=== PATIENT | female | born 1965 | race African-American/Black ===

== ENCOUNTER 2016-11-19 14:00 | Emergency (ER) | payer OTHER, MEDICAID ==
[~2016-11-19] VITALS: Ht 167.6 cm; Wt 67.0 kg
[~2016-11-19 14:00] MED LIST: LAMO25TA4; LEVE1000 PO; MECL12.584 PO; TOPI200C; bactrim
[2016-11-19 15:24] VITALS: BP 128/81
== END 2016-11-19 16:53 | disposition left against medical advice (07) ==
LOC: ER 14:00
DX: Z53.21 Procedure and treatment not carried out due to patient leaving prior to being seen by health care provider (principal)

== ENCOUNTER 2016-12-18 12:01 | Emergency (ER) | payer OTHER, MEDICAID | END 2016-12-18 15:00 | disposition left against medical advice (07) | LOC: ER 14:34 | DX: Z53.21 Procedure and treatment not carried out due to patient leaving prior to being seen by health care provider (principal) ==

== ENCOUNTER 2017-02-08 16:49 | Emergency (ER) | payer OTHER, MEDICAID ==
[~2017-02-08] VITALS: Ht 165.1 cm; Wt 60.0 kg
[2017-02-08 16:50] VITALS: BP 148/96
[2017-02-08] MEDS ORDERED: TETANUS, DIPHTHERIA, PERTUSSIS VAC/PF 0.5ML (>7YR OLD) IM ONE (17:45)
[2017-02-08] MEDS ORDERED: LIDOCAINE HCL 1% 20ML VIAL (Pyxis) INJ MC ONE (17:45)
== END 2017-02-08 19:05 | disposition home or self-care (01) ==
LOC: ER 17:43
DX: S01.01XA Laceration without foreign body of scalp, initial encounter (principal); Z88.0 Allergy status to penicillin; Z88.2 Allergy status to sulfonamides; Y08.89XA Assault by other specified means, initial encounter; Y93.01 Activity, walking, marching and hiking; Y92.89 Other specified places as the place of occurrence of the external cause; Y99.8 Other external cause status
CPT/HCPCS: 12002; 90471; 90715; 99283; J3490

== ENCOUNTER 2017-04-13 15:34 | Emergency (ER) | payer MEDICARE, MEDICAID ==
[~2017-04-13] VITALS: Ht 167.6 cm; Wt 65.0 kg
[2017-04-13 19:28] LABS: CLARITY URINE CLOUDY (CLEAR); COLOR URINE YELLOW (YELLOW); GLUCOSE URINE NEGATIVE (NEGATIVE); KETONES URINE NEGATIVE (NEGATIVE); LEUKOCYTE ESTERASE URINE 1+ (NEGATIVE); NITRITE URINE POSITIVE (NEGATIVE); OCCULT BLOOD URINE NEGATIVE (NEGATIVE); PROTEIN URINE NEGATIVE (NEGATIVE); SPECIFIC GRAVITY URINE 1.013 (1.005-1.030); UROBILINOGEN URINE 0.2 E.U./dL (0.2-1.0)
[2017-04-13 20:40] VITALS: BP 119/76
[2017-04-13 21:18] LABS: EOSINOPHILS % 2.3 % (0.0-5.0); HEMATOCRIT. 35.9 % (36.0-48.0); HEMOGLOBIN. 11.3 g/dL (12.0-16.0); MEAN CORPUSCULAR HEMOGLOBIN 23.5 pg (28.0-32.0); MEAN CORPUSCULAR VOLUME 74.5 fL (81.0-99.0); MONOCYTES % 5.4 % (2.0-8.0); NEUTROPHILS % 47.3 % (40.0-76.0); PLATELET 190 x1000/uL (130-400); RED BLOOD CELL COUNT 4.81 mill/uL (4.2-5.4); RED CELL DISTRIBUTION WIDTH 15.2 % (11.6-14.6)
[2017-04-13 21:30] LABS: CARBON DIOXIDE 21 mEq/L (21-32); CHLORIDE 114 mEq/L (98-107)
== END 2017-04-13 21:19 | disposition left against medical advice (07) ==
LOC: ER 17:42
DX: N39.0 Urinary tract infection, site not specified (principal); G40.909 Epilepsy, unspecified, not intractable, without status epilepticus; Z88.0 Allergy status to penicillin
CPT/HCPCS: 36415; 80053; 81001; 81025; 83690; 85025; 99284

== ENCOUNTER 2018-04-07 16:08 | Emergency (ER) | payer MEDICARE, MEDICAID ==
[~2018-04-07] VITALS: Ht 170.2 cm; Wt 61.0 kg
[~2018-04-07 16:08] MED LIST changes: -TOPI200C; +TOPI200C6
[2018-04-07 16:23] VITALS: BP 110/68
== END 2018-04-07 19:30 | disposition home or self-care (01) ==
LOC: ER 16:08
DX: H93.13 Tinnitus, bilateral (principal); R51 Headache; M19.90 Unspecified osteoarthritis, unspecified site; Z88.0 Allergy status to penicillin; Z88.2 Allergy status to sulfonamides
CPT/HCPCS: 99281

== ENCOUNTER 2018-06-22 13:16 | Emergency (ER) | payer OTHER, MEDICAID ==
[~2018-06-22] VITALS: Ht 167.6 cm; Wt 62.0 kg
[2018-06-22] MEDS ORDERED: SODIUM CHLORIDE 0.9% 1,000 ML IV ONE (14:07)
[2018-06-22] MEDS ORDERED: MORPHINE SULFATE 4 MG/ML CPJ (NOT FOR IM USE) IV STA (14:07)
[2018-06-22] MEDS ORDERED: ONDANSETRON HCL 4MG/2ML INJ IV STA (14:07)
[2018-06-22 14:46] LABS: BASOPHILS % 0.9 % (0.0-2.0); EOSINOPHILS % 8.3 % (0.0-5.0); HEMATOCRIT. 30.9 % (36.0-48.0); HEMOGLOBIN. 9.8 g/dL (12.0-16.0); LYMPHOCYTES % 35.3 % (20.0-50.0); MEAN CORPUSCULAR HEMOGLOBIN 23.3 pg (28.0-32.0); MEAN CORPUSCULAR VOLUME 73.9 fL (81.0-99.0); MEAN PLATELET VOLUME 8.1 fl (7.4-10.4); MONOCYTES % 5.7 % (2.0-8.0); NEUTROPHILS % 49.8 % (40.0-76.0); PLATELET 273 x1000/uL (130-400); RED BLOOD CELL COUNT 4.18 mill/uL (4.2-5.4); RED CELL DISTRIBUTION WIDTH 16.1 % (11.6-14.6)
[2018-06-22 14:55] LABS: PARTIAL THROMBOPLASTIN TIME 27.8 sec (23.4-31.0)
[2018-06-22 14:58] LABS: CHLORIDE 115 mEq/L (98-107)
[2018-06-22] MEDS ORDERED: ASPIRIN 81MG TABLET PO ONE (16:30)
[2018-06-22] MEDS ORDERED: NITROGLYCERIN 0.4MG TABLET SL SL PRN (16:30)
[2018-06-22 17:13] VITALS: BP 132/78
== END 2018-06-22 17:17 | disposition left against medical advice (07) ==
LOC: ER 15:38
DX: R07.89 Other chest pain (principal); G40.909 Epilepsy, unspecified, not intractable, without status epilepticus
CPT/HCPCS: 36415; 71045; 71250; 80053; 83880; 84484; 85025; 85379; 85610; 85730; 93005; 96374; 96375; 99285; J2270; J2405; J7030

== ENCOUNTER 2018-06-29 19:51 | Emergency (ER) | payer MEDICAID, OTHER ==
[~2018-06-29] VITALS: Ht 170.2 cm; Wt 64.0 kg
[2018-06-29] MEDS ORDERED: SODIUM CHLORIDE 0.9% 1,000 ML IV ONE (21:43)
[2018-06-29] MEDS ORDERED: MAGNESIUM/ALUMINUM HYDROXIDE/SIMETHICONE 30ML UDC PO STA (21:43)
[2018-06-29] MEDS ORDERED: ONDANSETRON HCL 4MG/2ML INJ IV STA (21:43)
[2018-06-29] MEDS ORDERED: KETOROLAC 30MG/ML VIAL IV STA (21:43)
[2018-06-29 22:41] LABS: BASOPHILS % 0.6 % (0.0-2.0); EOSINOPHILS % 4.3 % (0.0-5.0); HEMATOCRIT. 31.8 % (36.0-48.0); LYMPHOCYTES % 33.5 % (20.0-50.0); MEAN CORPUSCULAR HEMOGLOBIN 23.6 pg (28.0-32.0); MEAN CORPUSCULAR VOLUME 74.6 fL (81.0-99.0); MEAN PLATELET VOLUME 8.6 fl (7.4-10.4); MONOCYTES % 6.3 % (2.0-8.0); NEUTROPHILS % 55.3 % (40.0-76.0); PLATELET 350 x1000/uL (130-400); RED BLOOD CELL COUNT 4.26 mill/uL (4.2-5.4); RED CELL DISTRIBUTION WIDTH 16.8 % (11.6-14.6)
[2018-06-29 22:46] LABS: CHLORIDE 113 mEq/L (98-107)
[2018-06-29 22:55] LABS: CLARITY URINE CLEAR (CLEAR); COLOR URINE YELLOW (YELLOW); KETONES URINE NEGATIVE (NEGATIVE); LEUKOCYTE ESTERASE URINE 1+ (NEGATIVE); NITRITE URINE NEGATIVE (NEGATIVE); OCCULT BLOOD URINE NEGATIVE (NEGATIVE); PH URINE 7.5 (4.5-8.0); PROTEIN URINE NEGATIVE (NEGATIVE); SPECIFIC GRAVITY URINE 1.031 (1.005-1.030)
[2018-06-30 00:03] VITALS: BP 119/80
== END 2018-06-30 00:05 | disposition home or self-care (01) ==
LOC: ER 19:51
DX: N30.00 Acute cystitis without hematuria (principal); K21.9 Gastro-esophageal reflux disease without esophagitis; Z88.0 Allergy status to penicillin; Z88.2 Allergy status to sulfonamides
CPT/HCPCS: 36415; 80053; 81003; 83690; 85025; 96361; 96374; 96375; 99285; J1885; J2405; J7030

== ENCOUNTER 2018-07-09 16:36 | Emergency (ER) | payer OTHER ==
[~2018-07-09] VITALS: Ht 170.2 cm; Wt 64.1 kg
[2018-07-09] MEDS ORDERED: LIDOCAINE HCL/PF 1% 10 MG/ML 5ML VIAL IJ ONE (21:15)
[2018-07-09] MEDS ORDERED: BACITRACIN ZINC OINT UDPKT TOP ONE (22:00)
[2018-07-09 22:07] VITALS: BP 112/68
== END 2018-07-09 22:11 | disposition home or self-care (01) ==
LOC: ER 16:36
DX: L03.011 Cellulitis of right finger (principal); K21.9 Gastro-esophageal reflux disease without esophagitis; G40.89 Other seizures; Z88.0 Allergy status to penicillin; Z88.2 Allergy status to sulfonamides; Z79.899 Other long term (current) drug therapy
CPT/HCPCS: 10060; 99283; J3490

== ENCOUNTER 2018-07-28 14:22 | Emergency (ER) | payer OTHER ==
[~2018-07-28] VITALS: Ht 167.6 cm; Wt 66.5 kg
[2018-07-28 14:47] VITALS: BP 119/67
== END 2018-07-28 19:00 | disposition left against medical advice (07) ==
LOC: ER 14:22
DX: M79.662 Pain in left lower leg (principal); M79.661 Pain in right lower leg; Z53.21 Procedure and treatment not carried out due to patient leaving prior to being seen by health care provider

== ENCOUNTER 2019-02-11 12:53 | Emergency (ER) | payer OTHER, MEDICAID ==
[~2019-02-11] VITALS: Ht 170.2 cm; Wt 63.0 kg
[~2019-02-11 12:53] MED LIST changes: -LAMO25TA4; +LAMO25TA9; -bactrim
[2019-02-11 13:21] VITALS: BP 131/75
== END 2019-02-11 21:31 | disposition left against medical advice (07) ==
LOC: ER 13:32
DX: R56.9 Unspecified convulsions (principal); Z53.21 Procedure and treatment not carried out due to patient leaving prior to being seen by health care provider

== ENCOUNTER 2019-02-22 13:46 | Emergency (ER) | payer OTHER, MEDICAID ==
[~2019-02-22] VITALS: Ht 162.6 cm; Wt 62.0 kg
[2019-02-22 15:28] LABS: CLARITY URINE TURBID (CLEAR); COLOR URINE YELLOW (YELLOW); KETONES URINE NEGATIVE (NEGATIVE); LEUKOCYTE ESTERASE URINE NEGATIVE (NEGATIVE); NITRITE URINE NEGATIVE (NEGATIVE); OCCULT BLOOD URINE NEGATIVE (NEGATIVE); PH URINE 7.5 (4.5-8.0); PROTEIN URINE NEGATIVE (NEGATIVE); SPECIFIC GRAVITY URINE 1.015 (1.005-1.030)
[2019-02-22 15:40] LABS: BASOPHILS % 0.9 % (0.0-2.0); EOSINOPHILS % 2.1 % (0.0-5.0); HEMATOCRIT. 27.4 % (36.0-48.0); HEMOGLOBIN. 8.4 g/dL (12.0-16.0); LYMPHOCYTES % 27.1 % (20.0-50.0); MEAN CORPUSCULAR VOLUME 65.4 fL (81.0-99.0); MEAN PLATELET VOLUME 7.5 fl (7.4-10.4); MONOCYTES % 6.3 % (2.0-8.0); NEUTROPHILS % 63.6 % (40.0-76.0); PLATELET 434 x1000/uL (130-400); RED BLOOD CELL COUNT 4.19 mill/uL (4.2-5.4); RED CELL DISTRIBUTION WIDTH 20.7 % (11.6-14.6)
[2019-02-22 15:45] LABS: CHLORIDE 111 mEq/L (98-107)
[2019-02-22 15:47] LABS: PARTIAL THROMBOPLASTIN TIME 28.2 sec (23.4-31.0); PROTHROMBIN TIME 10.4 sec (9.6-11.0)
[2019-02-22 17:00] VITALS: BP 119/69
[2019-02-22 18:02] LABS: PLATELET ESTIMATE NORMAL
== END 2019-02-22 17:00 | disposition left against medical advice (07) ==
LOC: ER 13:53 → CANBEDREQ 20:28
DX: R55 Syncope and collapse (principal); R30.0 Dysuria; R60.0 Localized edema; M54.5 Low back pain; G40.909 Epilepsy, unspecified, not intractable, without status epilepticus
CPT/HCPCS: 36415; 71045; 83880; 84484; 93005; 93970; 99284

== ENCOUNTER 2019-02-27 10:03 | Emergency (ER) | payer OTHER, MEDICAID ==
[~2019-02-27] VITALS: Ht 170.2 cm; Wt 60.0 kg
[2019-02-27 11:42] LABS: HEMATOCRIT. 24.6 % (36.0-48.0); HEMOGLOBIN. 7.5 g/dL (12.0-16.0); LYMPHOCYTES % 19.6 % (20.0-50.0); MEAN CORPUSCULAR HEMOGLOBIN 19.8 pg (28.0-32.0); MEAN PLATELET VOLUME 7.4 fl (7.4-10.4); MONOCYTES % 8.9 % (2.0-8.0); NEUTROPHILS % 68.5 % (40.0-76.0); PLATELET 464 x1000/uL (130-400); RED BLOOD CELL COUNT 3.78 mill/uL (4.2-5.4); RED CELL DISTRIBUTION WIDTH 20.6 % (11.6-14.6)
[2019-02-27 11:48] LABS: CHLORIDE 117 mEq/L (98-107)
[2019-02-27 11:50] LABS: INR 1.1; PARTIAL THROMBOPLASTIN TIME 27.3 sec (23.4-31.0); PROTHROMBIN TIME 10.8 sec (9.6-11.0)
[2019-02-27 12:08] LABS: PLATELET ESTIMATE INCREASED
[2019-02-27 14:30] VITALS: BP 118/68
== END 2019-02-27 15:10 | disposition home or self-care (01) ==
LOC: ER 10:03 → CANBEDREQ 14:24 → ER 15:10
DX: D64.9 Anemia, unspecified (principal); R55 Syncope and collapse; Z88.2 Allergy status to sulfonamides; Z88.0 Allergy status to penicillin
CPT/HCPCS: 36415; 71045; 83880; 84484; 86850; 86900; 93005; 99284

== ENCOUNTER 2019-04-16 17:28 | Emergency (ER) | payer OTHER, MEDICAID ==
[~2019-04-16] VITALS: Ht 170.2 cm; Wt 61.0 kg
[2019-04-16 17:39] VITALS: BP 127/77
== END 2019-04-16 19:58 | disposition left against medical advice (07) ==
LOC: ER 18:06
DX: R07.9 Chest pain, unspecified (principal); Z53.21 Procedure and treatment not carried out due to patient leaving prior to being seen by health care provider
CPT/HCPCS: 93005

== ENCOUNTER 2019-05-16 13:05 | Emergency (ER) | payer OTHER, MEDICAID ==
[~2019-05-16] VITALS: Ht 162.6 cm; Wt 49.0 kg
[2019-05-16] MEDS ORDERED: GABA-533 PO (13:11)
[2019-05-16] MEDS ORDERED: DIVA-75 PO (13:11)
[2019-05-16] MEDS ORDERED: KETOROLAC 30MG/ML VIAL IV STA (13:21)
[2019-05-16] MEDS ORDERED: LORAZEPAM 2MG/ML CPJ IV ONE (13:30)
[2019-05-16] MEDS ORDERED: LEVETIRACETAM 500MG PREMIX 100 ML IV ONE (13:30)
[2019-05-16 14:32] LABS: BASOPHILS % 0.5 % (0.0-2.0); EOSINOPHILS % 0.1 % (0.0-5.0); HEMATOCRIT. 31.2 % (36.0-48.0); HEMOGLOBIN. 9.6 g/dL (12.0-16.0); LYMPHOCYTES % 29.2 % (20.0-50.0); MEAN CORPUSCULAR HEMOGLOBIN 20.9 pg (28.0-32.0); MEAN CORPUSCULAR VOLUME 68.1 fL (81.0-99.0); MEAN PLATELET VOLUME 8.5 fl (7.4-10.4); MONOCYTES % 4.3 % (2.0-8.0); NEUTROPHILS % 65.9 % (40.0-76.0); PLATELET 317 x1000/uL (130-400); RED BLOOD CELL COUNT 4.58 mill/uL (4.2-5.4); RED CELL DISTRIBUTION WIDTH 25.1 % (11.6-14.6)
[2019-05-16 14:38] LABS: CHLORIDE 114 mEq/L (98-107)
[2019-05-16 14:43] LABS: ETHANOL BLOOD < 10 mg/dL
[2019-05-16 16:03] LABS: PLATELET ESTIMATE NORMAL
[2019-05-16 16:57] VITALS: BP 108/90
== END 2019-05-16 16:58 | disposition home or self-care (01) ==
LOC: ER 13:05
DX: R56.9 Unspecified convulsions (principal); R51 Headache; D64.9 Anemia, unspecified; Z79.899 Other long term (current) drug therapy; Z88.0 Allergy status to penicillin; Z88.2 Allergy status to sulfonamides
CPT/HCPCS: 36415; 70450; 80053; 80165; 80320; 85025; 93005; 96365; 96375; 99284; J1885; J1953; J2060; G0480

== ENCOUNTER 2019-07-31 14:00 | Emergency (ER) | payer OTHER, MEDICAID ==
[~2019-07-31] VITALS: Ht 170.2 cm; Wt 59.0 kg
[~2019-07-31 14:00] MED LIST changes: +DIVA-75 PO; +GABA-533 PO
[2019-07-31 16:18] LABS: CLARITY URINE TURBID (CLEAR); COLOR URINE YELLOW (YELLOW); KETONES URINE NEGATIVE (NEGATIVE); LEUKOCYTE ESTERASE URINE 3+ (NEGATIVE); NITRITE URINE POSITIVE (NEGATIVE); OCCULT BLOOD URINE 3+ (NEGATIVE); PH URINE 6.5 (4.5-8.0); PROTEIN URINE 1+ (NEGATIVE); UROBILINOGEN URINE 0.2 E.U./dL (0.2-1.0)
[2019-07-31 22:25] VITALS: BP 119/53
== END 2019-07-31 22:28 | disposition home or self-care (01) ==
LOC: ER 14:00
DX: N39.0 Urinary tract infection, site not specified (principal)
CPT/HCPCS: 81003; 81025; 87077; 87186; 99283

== ENCOUNTER 2019-09-04 14:47 | Emergency (ER) | payer BC, MEDICAID ==
[~2019-09-04] VITALS: Ht 170.2 cm; Wt 62.0 kg
[~2019-09-04 14:47] MED LIST changes: +MECL-183 PO; -MECL12.584 PO
[2019-09-04 15:38] VITALS: BP 121/71
== END 2019-09-04 21:15 | disposition left against medical advice (07) ==
LOC: ER 14:47
DX: Z53.21 Procedure and treatment not carried out due to patient leaving prior to being seen by health care provider (principal)

== ENCOUNTER 2019-10-30 11:19 | Emergency (ER) | payer OTHER, MEDICAID ==
[~2019-10-30] VITALS: Ht 170.2 cm; Wt 61.0 kg
[2019-10-30] MEDS ORDERED: SODIUM CHLORIDE 0.9% 1,000 ML IV ONE (11:35)
[2019-10-30 12:12] LABS: CLARITY URINE CLOUDY (CLEAR); COLOR URINE YELLOW (YELLOW); KETONES URINE NEGATIVE (NEGATIVE); LEUKOCYTE ESTERASE URINE TRACE (NEGATIVE); NITRITE URINE NEGATIVE (NEGATIVE); OCCULT BLOOD URINE NEGATIVE (NEGATIVE); PH URINE 6.5 (4.5-8.0); PROTEIN URINE NEGATIVE (NEGATIVE); SPECIFIC GRAVITY URINE 1.029 (1.005-1.030)
[2019-10-30 12:13] LABS: BASOPHILS % 1.1 % (0.0-2.0); EOSINOPHILS % 2.2 % (0.0-5.0); HEMATOCRIT. 31.8 % (36.0-48.0); HEMOGLOBIN. 9.9 g/dL (12.0-16.0); MEAN CORPUSCULAR HEMOGLOBIN 21.8 pg (28.0-32.0); MEAN CORPUSCULAR VOLUME 70.2 fL (81.0-99.0); MEAN PLATELET VOLUME 7.7 fl (7.4-10.4); MONOCYTES % 7.1 % (2.0-8.0); NEUTROPHILS % 47.6 % (40.0-76.0); PLATELET 380 x1000/uL (130-400); RED BLOOD CELL COUNT 4.54 mill/uL (4.2-5.4); RED CELL DISTRIBUTION WIDTH 19.1 % (11.6-14.6)
[2019-10-30 12:18] LABS: CHLORIDE 113 mEq/L (98-107)
[2019-10-30 12:21] LABS: ETHANOL BLOOD < 10 mg/dL
[2019-10-30 12:26] LABS: CREATINE KINASE 454 IU/L (26-192)
[2019-10-30 12:27] LABS: *BARBITURATES SCREEN URINE NEGATIVE (NEGATIVE); *BENZODIAZEPINES SCREEN URINE NEGATIVE (NEGATIVE); *COCAINE SCREEN URINE NEGATIVE (NEGATIVE)
[2019-10-30 12:28] LABS: *AMPHETAMINES SCREEN URINE NEGATIVE (NEGATIVE); CANNABINOID URINE SCREEN NEGATIVE (NEGATIVE); METHADONE URINE SCREEN NEGATIVE (NEGATIVE); OPIATES URINE SCREEN NEGATIVE (NEGATIVE); PHENCYCLIDINE URINE SCREEN NEGATIVE (NEGATIVE)
[2019-10-30 12:50] VITALS: BP 118/70
== END 2019-10-30 14:13 | disposition left against medical advice (07) ==
LOC: ER 11:19
DX: G40.909 Epilepsy, unspecified, not intractable, without status epilepticus (principal); E87.2 Acidosis
CPT/HCPCS: 36415; 70450; 71045; 80053; 80165; 80201; 80305; 80320; 81003; 82542; 82550; 85025; 99285; J7030; G0480

== ENCOUNTER 2020-08-07 11:41 | Emergency (ER) | payer OTHER, MEDICAID ==
[~2020-08-07] VITALS: Ht 165.1 cm; Wt 59.0 kg
[2020-08-07 11:45] VITALS: BP 158/91
[2020-08-07] MEDS ORDERED: LEVETIRACETAM 1000MG PREMIX 100 ML IV ONE (12:00)
[2020-08-07] MEDS ORDERED: SODIUM CHLORIDE 0.9% 1,000 ML IV ONE (12:00)
[2020-08-07 13:27] LABS: BASOPHILS % 1.4 % (0.0-2.0); EOSINOPHILS % 5.4 % (0.0-5.0); HEMATOCRIT. 36.2 % (36.0-48.0); HEMOGLOBIN. 11.4 g/dL (12.0-16.0); LYMPHOCYTES % 23.8 % (20.0-50.0); MEAN CORPUSCULAR HEMOGLOBIN 24.6 pg (28.0-32.0); MEAN CORPUSCULAR VOLUME 77.9 fL (81.0-99.0); MEAN PLATELET VOLUME 8.3 fl (7.4-10.4); MONOCYTES % 5.7 % (2.0-8.0); NEUTROPHILS % 63.7 % (40.0-76.0); PLATELET 332 x1000/uL (130-400); RED BLOOD CELL COUNT 4.65 mill/uL (4.2-5.4); RED CELL DISTRIBUTION WIDTH 15.8 % (11.6-14.6)
[2020-08-07 13:28] LABS: CLARITY URINE CLOUDY (CLEAR); COLOR URINE YELLOW (YELLOW); KETONES URINE NEGATIVE (NEGATIVE); LEUKOCYTE ESTERASE URINE NEGATIVE (NEGATIVE); NITRITE URINE NEGATIVE (NEGATIVE); OCCULT BLOOD URINE NEGATIVE (NEGATIVE); PROTEIN URINE NEGATIVE (NEGATIVE); SPECIFIC GRAVITY URINE 1.017 (1.005-1.030); UROBILINOGEN URINE 0.2 E.U./dL (0.2-1.0)
[2020-08-07 13:35] LABS: CHLORIDE 111 mEq/L (98-107)
[2020-08-07 13:39] LABS: ETHANOL BLOOD < 10 mg/dL
[2020-08-07 13:42] LABS: CARBAMAZEPINE 0.5 ug/mL (4-12)
[2020-08-07] MEDS ORDERED: DIVALPROEX SODIUM 500MG ER TABLET PO SCH (14:00)
[2020-08-07 14:06] LABS: *AMPHETAMINES SCREEN URINE NEGATIVE (NEGATIVE)
[2020-08-07 14:07] LABS: *BARBITURATES SCREEN URINE NEGATIVE (NEGATIVE); *BENZODIAZEPINES SCREEN URINE NEGATIVE (NEGATIVE); *COCAINE SCREEN URINE NEGATIVE (NEGATIVE); METHADONE URINE SCREEN NEGATIVE (NEGATIVE); OPIATES URINE SCREEN NEGATIVE (NEGATIVE)
[2020-08-07 14:08] LABS: CANNABINOID URINE SCREEN NEGATIVE (NEGATIVE); PHENCYCLIDINE URINE SCREEN NEGATIVE (NEGATIVE)
== END 2020-08-07 15:00 | disposition left against medical advice (07) ==
LOC: ER 11:54
DX: G40.909 Epilepsy, unspecified, not intractable, without status epilepticus (principal)
CPT/HCPCS: 36415; 80053; 80156; 80165; 80305; 80320; 81003; 82962; 85025; 93005; 99284; J7030; G0480

== ENCOUNTER 2022-09-20 14:27 | Emergency (ER) | payer MEDICARE, MEDICAID ==
[~2022-09-20] VITALS: Ht 165.1 cm; Wt 50.0 kg
[~2022-09-20 14:27] MED LIST changes: -MECL-183 PO; +MECL-217 PO
[2022-09-20 14:31] VITALS: BP 148/80
== END 2022-09-20 15:18 | disposition left against medical advice (07) ==
LOC: ER 14:46
DX: G40.909 Epilepsy, unspecified, not intractable, without status epilepticus (principal)
CPT/HCPCS: 99283

== ENCOUNTER 2023-04-16 16:12 | Emergency (ER) | payer OTHER, MEDICAID ==
[~2023-04-16] VITALS: Ht 167.6 cm; Wt 70.0 kg
[2023-04-16 16:38] VITALS: BP 130/74; RESP 16; TEMP 98.7; O2SAT 96
[2023-04-16 16:41] VITALS: PULSE 71
[2023-04-16 17:19] LABS: CLARITY URINE CLOUDY (CLEAR); COLOR URINE YELLOW (YELLOW); GLUCOSE URINE NEGATIVE (NEGATIVE); KETONES URINE NEGATIVE (NEGATIVE); LEUKOCYTE ESTERASE URINE 2+ (NEGATIVE); NITRITE URINE NEGATIVE (NEGATIVE); OCCULT BLOOD URINE 1+ (NEGATIVE); PROTEIN URINE TRACE (NEGATIVE); SPECIFIC GRAVITY URINE 1.032 (1.005-1.030)
[2023-04-16 17:55] LABS: BACTERIA URINE 2+
[2023-04-16 17:56] LABS: SQUAMOUS EPITHELIAL CELL URINE 1+ /lpf (RARE/1+); WBC URINE 15-25 /hpf (0-2)
[2023-04-16] MEDS ORDERED: NITR-87 MT (18:23)
[2023-04-16] MEDS ORDERED: CIPR-264 MT (18:27)
== END 2023-04-16 19:22 | disposition home or self-care (01) ==
LOC: ER 16:12
DX: N39.0 Urinary tract infection, site not specified (principal); Z88.0 Allergy status to penicillin; Z88.2 Allergy status to sulfonamides
CPT/HCPCS: 81003; 87077; 87186; 99283

== ENCOUNTER 2023-06-15 13:43 | Emergency (ER) | payer OTHER, MEDICAID ==
[~2023-06-15] VITALS: Ht 170.2 cm; Wt 55.0 kg
[~2023-06-15 13:43] MED LIST changes: +CIPR-264 MT; -GABA-533 PO; +GABA-534 PO
[2023-06-15 15:40] LABS: CLARITY URINE TURBID (CLEAR); COLOR URINE YELLOW (YELLOW); GLUCOSE URINE NEGATIVE (NEGATIVE); KETONES URINE TRACE (NEGATIVE); LEUKOCYTE ESTERASE URINE 2+ (NEGATIVE); NITRITE URINE NEGATIVE (NEGATIVE); OCCULT BLOOD URINE 2+ (NEGATIVE); PROTEIN URINE 2+ (NEGATIVE)
[2023-06-15 16:37] LABS: BACTERIA URINE 3+; SQUAMOUS EPITHELIAL CELL URINE 1+ /lpf (RARE/1+)
[2023-06-15 16:39] LABS: WBC URINE TNTC /hpf (0-2)
[2023-06-15] MEDS ORDERED: CIPR-263 MT (16:40)
[2023-06-15 17:00] VITALS: BP 128/70; PULSE 72; RESP 16; TEMP 98.9
== END 2023-06-15 17:01 | disposition home or self-care (01) ==
LOC: ER 14:12
DX: R30.0 Dysuria (principal); Z88.0 Allergy status to penicillin; Z88.2 Allergy status to sulfonamides; Z86.59 Personal history of other mental and behavioral disorders
CPT/HCPCS: 81003; 87077; 87186; 99283

== ENCOUNTER 2023-08-29 13:16 | Emergency (ER) | payer MEDICAID, MEDICARE, OTHER ==
[~2023-08-29] VITALS: Ht 162.6 cm; Wt 73.0 kg
[~2023-08-29 13:16] MED LIST changes: +CIPR-263 MT
[2023-08-29 13:23] VITALS: O2SAT 100
[2023-08-29 15:44] LABS: BASOPHILS % 1.2 % (0.0-2.0); DIFFERENTIAL COMMENT 0; EOSINOPHILS % 3.3 % (0.0-5.0); HEMATOCRIT. 34.8 % (36.0-48.0); HEMOGLOBIN. 10.8 g/dL (12.0-16.0); LYMPHOCYTES % 43.1 % (20.0-50.0); MEAN CORPUSCULAR HEMOGLOBIN 23.9 pg (28.0-32.0); MEAN CORPUSCULAR VOLUME 77.1 fL (81.0-99.0); MEAN PLATELET VOLUME 8.8 fl (7.4-10.4); MONOCYTES % 7.4 % (2.0-8.0); PLATELET 249 x1000/uL (130-400); RED BLOOD CELL COUNT 4.51 mill/uL (4.2-5.4); RED CELL DISTRIBUTION WIDTH 15.5 % (11.6-14.6); WHITE BLOOD COUNT 3.9 x1000/uL (4.5-11.0)
[2023-08-29 15:55] LABS: ALANINE AMINOTRANSFERASE 39 IU/L (10-49); ALBUMIN 4.1 g/dL (3.2-4.8); ASPARTATE AMINOTRANSFERASE 61 IU/L (<34); BILIRUBIN TOTAL 0.2 mg/dL (0.1-1.0); CALCIUM 8.6 mg/dL (8.7-10.4); CARBON DIOXIDE 15 mEq/L (21-32); CHLORIDE 117 mEq/L (98-107); GLUCOSE 80 mg/dL (70-105); POTASSIUM 5.7 mEq/L (3.5-5.1); PROTEIN TOTAL 7.7 g/dL (6.0-8.3); SODIUM 141 mEq/L (136-145); TROPONIN I HIGH SENSITIVITY 5 ng/L (3.0-34); UREA NITROGEN BLOOD 9 mg/dL (9-23)
[2023-08-29 20:45] VITALS: BP 135/61; PULSE 61; RESP 20; TEMP 97.7
== END 2023-08-29 21:05 | disposition left against medical advice (07) ==
LOC: ER 13:16
DX: R53.1 Weakness (principal); I10 Essential (primary) hypertension; Z88.0 Allergy status to penicillin; Z88.2 Allergy status to sulfonamides; Z20.822 Contact with and (suspected) exposure to COVID-19
CPT/HCPCS: 36415; 71045; 80053; 83605; 83880; 84484; 85025; 87426; 93005; 99285

== ENCOUNTER 2023-09-01 11:12 | Emergency (ER) | payer MEDICAID, MEDICARE ==
[~2023-09-01] VITALS: Ht 162.6 cm; Wt 60.0 kg
[2023-09-01 11:14] VITALS: BP 150/80; PULSE 72; RESP 16; TEMP 98; O2SAT 100
== END 2023-09-01 11:34 | disposition left against medical advice (07) ==
LOC: ER 11:20
DX: R56.9 Unspecified convulsions (principal); Z53.21 Procedure and treatment not carried out due to patient leaving prior to being seen by health care provider
CPT/HCPCS: 99281